=== PATIENT | male | born 1990 | race Caucasian/White ===

== ENCOUNTER 2017-01-12 19:07 | Emergency (ER) | payer OTHER ==
[~2017-01-12] VITALS: Ht 180.3 cm; Wt 71.0 kg
[2017-01-12 19:09] VITALS: TEMP 36.9; Ht 180.3 cm; Wt 71.0 kg
--- NOTE | 2017-01-12 19:53 | EMERGENCY ROOM VISIT NOTE ---
History Report prepared by Wendy: Best Samson Under the Supervision of: Dr. Jomar Kaiser M.D. First contact with patient: 19:42 Chief Complaint: CARDIAC ASSESSMENT Stated Complaint: DULL ACHE IN CHEST Nursing Triage Summary: patient reports dull chest ache since yesterday,patient reports drinking cayenne pepper in water and pain resolving yesterday,patient reports the ache is back and going down left arm,patient reports having this pain a week ago and 5 years ago History of Present Illness The patient is a 26 year old male who presents to the Emergency Room with complaints of waxing and waning chest pain that started 3 days ago. He says that the chest pain is a "dull ache", which is mostly constant, but sometimes worsens and radiates to his left shoulder. He states that yesterday, he drank a glass of cayenne pepper water which resolved the ache, but the ache is back today. He denies any shortness of breath, nausea, vomiting, fevers, cough, sore throat, headaches, abdominal pain, calf pain, or bowel problems. The patient adds that 5 years ago, he had an episode of severe chest pain with breathing, which resolved on its own. He says that his aching recently is not like what it was 5 years ago. He denies any acid in his throat, belching, or recent chest trauma. The patient denies any recent sick contacts. He notes that his uncle of a heart attack at the age of 50. Source of History: patient, spouse/significant other Onset: 3 days ago Position: chest Quality: ache, dull Timing: waxes/wanes Modifying Factors (Relieving): other (Cayenne pepper water) Associated Symptoms: No fevers, No headache, No sorethroat, No cough, No SOB , No nausea, No vomiting, No abdominal pain Note: Associated symptoms: Radiation to left shoulder. Denies calf pain or bowel problems. Review of Systems See HPI for pertinent positives & negatives. A total of 10 systems reviewed and were otherwise negative. Past Medical & Surgical Medical Problems: (1) No chronic diseases present Old medical records were reviewed. Nurse's notes were reviewed and I agree with. Family History FH: heart disease FHx: cancer Social History Smoking Status: Never Smoker Smokeless Tobacco Use: No Alcohol Use: none Drug Use: none Marital Status: Housing Status: lives with family Occupation Status: employed Current/Historical Medications No Active Prescriptions or Reported Meds Allergies Coded Allergies: No Known Allergies (Unverified , 01/12/17) Physical Exam Vital Signs Date Time Temp Pulse Resp B/P (MAP) Pulse Ox O2 Delivery O2 Flow Rate FiO2 01/12/17 21:47 77 18 121/66 99 01/12/17 19:09 36.9 88 18 140/78 97 Room Air Physical Exam General: Well developed well nourished non ill appearing young male in no acute distress, breathing comfortably on room air. Normal speech HEENT: Normal cephalic atraumatic. Pupils are equal round and reactive to light. Extraocular movements are intact. Oropharynx is pink with moist mucous membranes. No swelling of the mouth lips or tongue. Neck: Supple with a midline trachea. No meningeal signs or stiffness, no JVD or bruits. No Stridor. Chest: Clear to auscultation bilaterally. No wheezes or rhonchi. No increased work of breathing. Heart: regular rate and rhythm. Abdomen: Soft nontender, nondistended without rebound guarding or rigidity. Extremities: No cyanosis clubbing or edema. No calf tenderness or assymetry Spine/Back. Non tender to palpation. No CVA tenderness Skin: Good turgor without rashes. Neurologic exam: Cranial nerves two through 12 are intact. Motor and sensation are intact and symmetrical throughout. Medical Decision & Procedures ER Provider Diagnostic Interpretation: X-ray results as stated below per interpretation by me and the radiologist: CHEST ONE VIEW PORTABLE HISTORY: 26 years-old Male CHEST PAIN COMPARISON: None available TECHNIQUE: Portable upright AP view of the chest FINDINGS: Cardiomediastinal and hilar silhouettes are within normal limits. No pneumothorax, pleural effusion or focal airspace consolidation. Bones are grossly intact. IMPRESSION: No acute cardiopulmonary process. The above report was generated using voice recognition software. It may contain grammatical, syntax or spelling errors. Electronically signed by: Heath Fox M.D. 01/12/2017 8:13 PM Dictated Date/Time: 01/12/2017 8:13 PM Laboratory Results 01/12/17 20:11 Red Blood Count 4.87, Mean Corpuscular Volume 88.3, Mean Corpuscular Hemoglobin 30.6, Mean Corpuscular Hemoglobin Concent 34.7, Mean Platelet Volume 10.2, Neutrophils (%) (Auto) 65.1, Lymphocytes (%) (Auto) 26.5, Monocytes (%) (Auto) 7.6, Eosinophils (%) (Auto) 0.4, Basophils (%) (Auto) 0.3, Neutrophils # (Auto) 4.54, Lymphocytes # (Auto) 1.85, Monocytes # (Auto) 0.53, Eosinophils # (Auto) 0.03, Basophils # (Auto) 0.02 01/12/17 20:11 Test 01/12/17 20:11 01/12/17 20:17 White Blood Count 6.98 K/uL (4.8-10.8) Red Blood Count 4.87 M/uL (4.7-6.1) Hemoglobin 14.9 g/dL (14.0-18.0) Hematocrit 43.0 % (42-52) Mean Corpuscular Volume 88.3 fL (80-100) Mean Corpuscular Hemoglobin 30.6 pg (25-34) Mean Corpuscular Hemoglobin Concent 34.7 g/dl (32-36) Platelet Count 214 K/uL (130-400) Mean Platelet Volume 10.2 fL (7.4-10.4) Neutrophils (%) (Auto) 65.1 % Lymphocytes (%) (Auto) 26.5 % Monocytes (%) (Auto) 7.6 % Eosinophils (%) (Auto) 0.4 % Basophils (%) (Auto) 0.3 % Neutrophils # (Auto) 4.54 K/uL (1.4-6.5) Lymphocytes # (Auto) 1.85 K/uL (1.2-3.4) Monocytes # (Auto) 0.53 K/uL (0.11-0.59) Eosinophils # (Auto) 0.03 K/uL (0-0.5) Basophils # (Auto) 0.02 K/uL (0-0.2) RDW Standard Deviation 39.0 fL (36.4-46.3) RDW Coefficient of Variation 12.1 % (11.5-14.5) Immature Granulocyte % (Auto) 0.1 % Immature Granulocyte # (Auto) 0.01 K/uL (0.00-0.02) Anion Gap 4.0 mmol/L (3-11) Est Creatinine Clear Calc Drug Dose 113.4 ml/min Estimated GFR () 120.7 Estimated GFR (Non- 104.1 BUN/Creatinine Ratio 16.3 (10-20) Calcium Level 9.4 mg/dl (8.5-10.1) Total Bilirubin 0.3 mg/dl (0.2-1) Direct Bilirubin < 0.1 mg/dl (0-0.2) Aspartate Amino Transf (AST/SGOT) 14 U/L (15-37) Alanine Aminotransferase (ALT/SGPT) 25 U/L (12-78) Alkaline Phosphatase 72 U/L (45-117) Total Creatine Kinase 131 U/L (39-308) Creatine Kinase MB 1.4 ng/ml (0.5-3.6) Creatine Kinase MB Ratio 1.1 (0-3.0) Total Protein 7.3 gm/dl (6.4-8.2) Albumin 4.1 gm/dl (3.4-5.0) Lipase 113 U/L (73-393) Bedside D-Dimer 40 ng/mlFEU (0-450) Bedside Troponin I < 0.030 ng/ml (0-0.045) Laboratory studies as stated above per my review. ECG Indication: chest pain Rate (beats per minute): 84 Rhythm: normal sinus Findings: no acute ischemic change, no ectopy, other (early repolarization) Comparison ECG Date: no prior available ED Course 1941: Past medical records reviewed. The patient was evaluated in room C2B, and a complete history and physical examination were performed. 2134: Upon reevaluation, the patient is feeling better. I discussed the results and treatment plan with him. He verbalized agreement of the treatment plan. The patient was discharged home. Medical Decision Differentials include, but are not limited to; ACS, arrhythmia, GERD, musculoskeletal, PE, electrolyte or metabolic abnormality. This patient comes in as described above. He's been having chest pain that has been going on for quite some time. It got better after he drank some cayenne pepper juice last evening. He looks well at present. He's had no trauma. EKG shows no acute ischemic changes or ectopy. Chest x-ray was unremarkable. He has no elevation of his cardiac enzymes. I do not is likely cardiac. He's had ongoing symptoms and they are atypical and his enzymes and EKG are unremarkable. His d-dimer is negative and in the low pretest probability setting makes PE highly unlikely. His chest x-ray does not show congestive heart failure, pneumonia, pneumothorax. He looks well. This may be more of a GI type issue recommend the use [id number] antacid type medications and return to ER if: Increasing pain, worsening of symptoms, fever or chills, any new problems or concerns. Medication Reconcilliation No medications on list. Blood Pressure Screening Patient's blood pressure: Normal blood pressure Impression Primary Impression: Precordial chest pain Scribe Attestation The scribe's documentation has been prepared under my direction and personally reviewed by me in its entirety. I confirm that the note above accurately reflects all work, treatment, procedures, and medical decision making performed by me. Departure Information Dispostion Home / Self-Care Prescriptions No Active Prescriptions or Reported Meds Referrals No Doctor, Assigned (PCP) Patient Instructions My [facility] Additional Instructions Rest. Drink plenty of fluids. Return if: Increasing pain, worsening symptoms, fever chills, any new problems or concerns. May use over the Zantac if needed Follow-up with your doctor this week for recheck.
--- NOTE | 2017-01-12 20:15 | DIAGNOSTIC IMAGING REPORT ---
CHEST ONE VIEW PORTABLE HISTORY: 26 years-old Male CHEST PAIN COMPARISON: None available TECHNIQUE: Portable upright AP view of the chest FINDINGS: Cardiomediastinal and hilar silhouettes are within normal limits. No pneumothorax, pleural effusion or focal airspace consolidation. Bones are grossly intact. IMPRESSION: No acute cardiopulmonary process. The above report was generated using voice recognition software. It may contain grammatical, syntax or spelling errors. Electronically signed by: Heath Fox M.D. 01/12/2017 8:13 PM Dictated Date/Time: 01/12/2017 8:13 PM
[2017-01-12 20:26] LABS: BASO % 0.3 %; BASO ABS # 0.02 K/uL (0-0.2); COMPLETE YES; EOS % 0.4 %; IG% 0.1 %; LYMPH % 26.5 %; LYMPH ABS # 1.85 K/uL (1.2-3.4); MEAN CELL VOLUME 88.3 fL (80-100); MEAN CORPUSCULAR HEMOGLOBIN 30.6 pg (25-34); MEAN CORPUSCULAR HGB CONC 34.7 g/dl (32-36); MEAN PLATELET VOLUME 10.2 fL (7.4-10.4); MONO % 7.6 %; NEUT % 65.1 %; PLATELET COUNT 214 K/uL (130-400); RED BLOOD COUNT 4.87 M/uL (4.7-6.1); WHITE BLOOD COUNT 6.98 K/uL (4.8-10.8)
[2017-01-12 20:35] LABS: POINT OF CARE TROPONIN I < 0.030 ng/ml (0-0.045)
[2017-01-12 20:44] LABS: BUN/CREATININE RATIO 16.3 (10-20); CALCIUM 9.4 mg/dl (8.5-10.1); POTASSIUM 3.7 mmol/L (3.5-5.1)
[2017-01-12 20:51] LABS: ALKALINE PHOSPHATASE 72 U/L (45-117); ALT/SGPT 25 U/L (12-78); AST/SGOT 14 U/L (15-37); CKMB/CK RATIO 1.1 (0-3.0)
[2017-01-12 21:47] VITALS: BP 121/66; PULSE 77; O2SAT 99
== END 2017-01-12 21:47 | disposition home or self-care (01) ==
LOC: C.EDB 19:08 → C.EDC 21:47
DX: R07.2 Precordial pain (principal); Z82.49 Family history of ischemic heart disease and other diseases of the circulatory system